=== PATIENT | male | born 2000 | race Caucasian/White ===

== ENCOUNTER 2022-07-20 14:34 | Outpatient (CLI) | payer BC | END 2022-07-20 14:35 | disposition home or self-care (01) | LOC: SCSRAD 14:34 | PROVIDERS: ATTEND Physician Assistant | DX: R07.9 Chest pain, unspecified (principal) | CPT/HCPCS: 71046 ==

== ENCOUNTER 2024-02-16 15:16 | Outpatient (CLI) | payer BC | END 2024-02-16 15:17 | disposition home or self-care (01) | LOC: SCSMRI 15:16 | PROVIDERS: ATTEND Physician Assistant | DX: R29.90 Unspecified symptoms and signs involving the nervous system (principal) | CPT/HCPCS: 70553; 76376 ==

== ENCOUNTER 2024-06-20 16:02 | Outpatient (CLI) | payer OTHER | END 2024-06-20 16:03 | disposition home or self-care (01) | LOC: BICCT 16:02 | PROVIDERS: ATTEND Nurse Practitioner Family | DX: R07.9 Chest pain, unspecified (principal) | CPT/HCPCS: 75571 ==